=== PATIENT | female | born 1960 | race African-American/Black ===

== ENCOUNTER 2017-01-29 17:18 | Emergency (ER) | payer MEDICAID ==
[~2017-01-29] VITALS: Ht 154.9 cm; Wt 96.7 kg
[2017-01-29 18:07] LABS: Basophils # (auto) 0 uL; Basophils % (auto) 0.3 % (0.0-2.0); CONDITION Y; DEFINITIVE SEE PRINTOUT; Eosinophils # (auto) 0 uL; Eosinophils % (auto) 0.2 % (0.0-7.0); Hematocrit 44.2 % (36.0-46.0); Hemoglobin 13.8 g/dL (12.2-16.2); Lymphocytes # (auto) 1.1 uL; Lymphocytes % (auto) 11.9 % (10.0-50.0); Mean Corpuscular Hemoglobin 21.9 pg (28.0-32.0); Mean Corpuscular Hgb Conc. 31.2 g/dL (32.0-36.0); Mean Corpuscular Volume 70.2 fL (80.0-100.0); Mean Platelet Volume 10.2 fL (7.4-10.4); Monocytes # (auto) 0.5 uL; Monocytes % (auto) 4.9 % (0.0-12.0); Neutrophils # (auto) 7.7 uL; Neutrophils % (auto) 82.7 % (37.0-80.0); Platelet Count (auto) 372 10^3/uL (140-450); White Blood Cell 9.4 10^3/uL (4.4-10.8)
[2017-01-29 18:20] LABS: Urine Color Red (Yellow); Urine Glucose TRACE mg/dL (Normal); Urine Hyaline Cast MANY /lpf (0 - 2); Urine Ketone Negative (Negative); Urine Mucus MODERATE (None Seen); Urine Nitrite Negative (Negative); Urine RBC 256 /hpf (0 - 4); Urine Squamous Epithelial Cell MOD /hpf (<5); Urine WBC Clumps PRESENT /hpf (None Seen); Urine pH 5.5 (5.0-8.0)
[2017-01-29 18:24] LABS: Urine Bilirubin Negative (Negative); Urine Blood 1+ /uL (Negative)
[2017-01-29 18:27] LABS: Albumin 4.2 g/dL (3.4-5.0); BUN/Creatinine Ratio 12.5; Calcium 9.4 mg/dL (8.5-10.1)
[2017-01-29 18:28] LABS: Bilirubin, Total 0.4 mg/dL (0.2-1.0); Total Protein 9.6 g/dL (6.4-8.2)
[2017-01-29 18:36] LABS: Potassium 2.8 mmol/L (3.5-5.1)
[2017-01-29] MEDS ORDERED: POTASSIUM CHL 10% (20 MEQ/15ML) ORAL SOLN PO ONE (19:15)
[2017-01-29] MEDS ORDERED: CEFTRIAXONE SODIUM 2 GM in D5W 5% 50 ML IV ONE (21:30)
[2017-01-29] MEDS ORDERED: cefTRIAXone 1GM/50ML D5W 50 ML IV ONE ×2 (22:00)
[2017-01-29 23:00] VITALS: BP 142/76
[2017-01-29] MEDS ORDERED: AZITHROMYCIN 250 MG TAB PO ONE (23:00)
[2017-01-29] MEDS ORDERED: FLUCONAZOLE 100 MG TAB PO ONE (23:00)
== END 2017-01-29 23:56 | disposition home or self-care (01) ==
LOC: ER 17:22
DX: N76.0 Acute vaginitis (principal); N39.0 Urinary tract infection, site not specified; F17.210 Nicotine dependence, cigarettes, uncomplicated; I10 Essential (primary) hypertension
CPT/HCPCS: 36415; 76856; 80053; 81001; 85025; 96365; 99285; J0696; 76830; J7060